=== PATIENT | female | born 1965 | race Caucasian/White ===

== ENCOUNTER 2016-12-20 16:24 | Inpatient (IN) | payer OTHER ==
[2016-12-20] MEDS ORDERED: Midazolam 2 MG/2 ML VIAL ONE (18:04)
[2016-12-20] MEDS ORDERED: Iohexol 350mgl/ml 50 ML ONE (18:04)
[2016-12-20] MEDS ORDERED: Iodixanol 320 MG/ML 200 ML BOTTLE IV ONE (18:04)
[2016-12-20] MEDS ORDERED: Lidocaine 2% Inj (20ml) ONE (18:04)
[2016-12-20] MEDS ORDERED: DiphenhydrAMINE 50 mg/ml Inj ONE (18:42)
[2016-12-20] MEDS ORDERED: Morphine 2 mg/ml ISec IVP PRN (19:33)
[2016-12-20] MEDS ORDERED: Sodium Chloride 0.9% 1,000 ML IV SCH (19:45)
[2016-12-20] MEDS ORDERED: Albuterol 0.083% Inhal Sol (2.5 mg/3 mL) UD IH SCH (20:00)
[2016-12-20] MEDS ORDERED: Morphine 4 mg/ml ISec IVP PRN (21:12)
[2016-12-20] MEDS ORDERED: Pneumococcal 23-Valent Vaccine IM ONE (21:26)
[2016-12-20 21:27] VITALS: BMI 21.7
[2016-12-21] MEDS ORDERED: Sodium Chloride 0.9% 1,000 ML IV SCH (00:31)
[2016-12-21] MEDS ORDERED: Albuterol 0.083% Inhal Sol (2.5 mg/3 mL) UD IH PRN (00:31)
--- NOTE | 2016-12-21 00:36 | CP.PCM.CON ---
<NeliWenceslao cabrera - Last Filed: 12/21/16 00:36> History of Present Illness - History of Present Illness History of Present Illness: cc: nausea/vomiting HPI: Patient is a 51yo female with past medical history of anxiety, asthma, arthritis, gastritis, hypertension and hyperlipidemia that presented to [facility] c/o epigastric abdominal pain associated with nausea and vomiting. She had been seen a day prior for the same symptoms and at that time was offered admission for further workup of her intractable nausea/vomiting. She declined admission and stated she would return if her symptoms worsen the following day. On this presentation, it was noted that her EKG showed T-wave inversions in the anterolateral leads as well as a troponin of 0.59. Cardiology was consulted and Dr. Olson recommended immediate cardiac catherization at [facility]. Patient was subsequently transferred to [facility] where cardiac cath was performed and 2 drug-eluting stents were placed in the mLAD. At the time of evaluation, patient denied chest pain, palpitations, SOB, abdominal pain, nausea, vomiting, fever, chills, cough. 12point ROS as per HPI above, otherwise negative PMHx: as stated above PSHx: cholecystectomy, hernia repair, tonsillectomy, hysterectomy Allergies: NKDA Medications: Patient reported only taking percocet for abdominal pain, however medications according to chart reviewed Social Hx: history of tobacco use, denies illicit drugs and alcohol use Family Hx: history of CAD Past Patient History - Infectious Disease Hx of Infectious Diseases: None - Past Social History Smoking Status: Never Smoked - CARDIAC Hx Hypercholesterolemia: Yes Hx Hypertension: Yes Other/Comment: dvt with ivc filter 1993 - PULMONARY Hx Asthma: Yes - HEMATOLOGICAL/ONCOLOGICAL Hx Blood Disorders: Yes Hx Cancer: (pt uncertain) Other/Comment: pt unsure as to why she had a hystrectomy in 1993 When questioned about ovarian or utrine ca pt stated "I don't remember". - INTEGUMENTARY Other/Comment: right groin drressing dry and intact - MUSCULOSKELETAL/RHEUMATOLOGICAL Hx Falls: No - GASTROINTESTINAL Hx Gastrointestinal Disorders: Yes (gastritis) Hx Pancreatitis: Yes Hx Ulcer: Yes - GENITOURINARY/GYNECOLOGICAL Hx Ovarian Cancer: Yes - PSYCHIATRIC Hx Anxiety: Yes Hx Depression: Yes - SURGICAL HISTORY Hx Cardiac Catheterization: Yes (12/20/16) Hx Cholecystectomy: Yes Hx Hysterectomy: Yes (1993) Other/Comment: hernia sx, tonsillectomy, left knee sx hardware removed, pt unsure as to why she had a hysterectomy, stated "I don't remember". cardiac catherization today 12/20/16 - ANESTHESIA Hx Anesthesia: Yes Hx Anesthesia Reactions: No Meds Allergies/Adverse Reactions: Allergies Allergy/AdvReac Type Severity Reaction Status Date / Time No Known Allergies Allergy Verified 12/16/16 10:54 - Medications Medications: Current Medications Acetaminophen (Tylenol 325mg Tab) 650 mg PO Q6 PRN PRN Reason: Pain, Mild (1-3) Albuterol Sulfate (Albuterol 0.083% Inhal Vicenta (2.5 Mg/3 Ml) Ud) 2.5 mg IH [id number] PRN PRN Reason: Shortness of Breath Alprazolam (Xanax) 1 mg PO BID PRN; Protocol PRN Reason: Anxiety Aspirin (Aspirin Chewable) 81 mg PO DAILY [facility] Atorvastatin Calcium (Lipitor) 40 mg PO HS [facility] Last Admin: 12/20/16 21:29 Dose: 40 mg Famotidine (Pepcid) 20 mg PO DAILY [facility] Sodium Chloride (Sodium Chloride 0.9%) 1,000 mls @ 100 mls/hr IV .Q10H [facility] Morphine Sulfate (Morphine) 2 mg IVP Q4H PRN PRN Reason: Pain, moderate (4-7) Last Admin: 12/20/16 21:27 Dose: 2 mg Ondansetron HCl (Zofran Odt) 4 mg PO Q6 PRN PRN Reason: Nausea/Vomiting Pantoprazole Sodium (Protonix Ec Tab) 20 mg PO ACB [facility] Prasugrel (Effient) 10 mg PO DAILY [facility] Physical Exam - Constitutional Appears: No Acute Distress - Head Exam Head Exam: ATRAUMATIC, NORMAL INSPECTION, NORMOCEPHALIC - Eye Exam Eye Exam: EOMI, PERRL - ENT Exam ENT Exam: Mucous Membranes Moist - Neck Exam Neck exam: Positive for: Normal Inspection - Respiratory Exam Respiratory Exam: Clear to Auscultation Bilateral. absent: Rales, Rhonchi, Wheezes - Cardiovascular Exam Cardiovascular Exam: RRR, +S1, +S2. absent: Diastolic murmur, Gallop, Rubs, Systolic Murmur - GI/Abdominal Exam GI & Abdominal Exam: Soft. absent: Distended, Firm, Guarding, Rebound, Tenderness - Extremities Exam Extremities exam: Positive for: normal inspection. Negative for: pedal edema - Neurological Exam Neurological exam: Alert, Oriented x3 - Psychiatric Exam Psychiatric exam: Normal Affect, Normal Mood - Skin Skin Exam: Dry, Intact, Normal Color, Warm Results - Vital Signs Recent Vital Signs: Last Vital Signs Temp 98.4 F 12/20/16 21:12 Pulse 66 12/20/16 23:39 Resp 16 12/20/16 22:40 BP 130/67 12/20/16 22:32 Pulse Ox 100 12/20/16 22:40 Assessment & Plan - Assessment and Plan (Free Text) Plan: 51yo female with history of anxiety, asthma, arthritis, gastritis, HTN and HLD admitted for NSTEMI s/p cardiac cath with 2 IMTIAZ stents placed in the mLAD 1. Neuro -Alert, oriented x3 -Maintain normothermia 2. Cardio -Patient s/p cardiac cath with 2 drug-eluting stents placed in the mLAD -On arrival to the ED, patient was placed on heparin drip, ASA 325 and Plavix -EKG reviewed; NSR @ 77bpm, incomplete RBBB, T wave inversions in the anterolateral leads, prolonged QT -Troponin on arrival 0.59, repeat in the AM ordered -Continue with ASA 81mg PO daily, Effient 10mg PO daily, Lipitor 40mg PO HS -Beta yvette held due to episodes of bradycardia -IVF hydration with NS @100cc/hr -Pain control with morphine 2mg q4h PRN -Zofran 4mg q6h PRN for nausea/vomiting 3. Pulm -Continue with Albuterol treatments PRN for asthma -CXR reviewed; revealed no active disease -O2 sat >92% on room air 4. GI -Heart healthy diet -GI prophylaxis with pepcid 20mg po daily 5. Renal -Monitor and replete electrolytes as indicated -IVF hydration -Monitor for post-cath contrast induced nephropathy 6. Endo -Heart healthy diet/maintain euglycemia 7. ID -afebrile, no leukocytosis -CXR revealed no active disease -UA from 12/19 negative Patient seen and case discussed with attending, Dr. Quiroz - Date & Time Date: 12/21/16 Time: 00:45 <Juan Quiroz Q - Last Filed: 12/21/16 02:09> Meds - Medications Medications: Current Medications Acetaminophen (Tylenol 325mg Tab) 650 mg PO Q6 PRN PRN Reason: Pain, Mild (1-3) Albuterol Sulfate (Albuterol 0.083% Inhal Vicenta (2.5 Mg/3 Ml) Ud) 2.5 mg IH [id number] PRN PRN Reason: Shortness of Breath Alprazolam (Xanax) 1 mg PO BID PRN; Protocol PRN Reason: Anxiety Aspirin (Aspirin Chewable) 81 mg PO DAILY [facility] Atorvastatin Calcium (Lipitor) 40 mg PO HS [facility] Last Admin: 12/20/16 21:29 Dose: 40 mg Famotidine (Pepcid) 20 mg PO DAILY [facility] Sodium Chloride (Sodium Chloride 0.9%) 1,000 mls @ 100 mls/hr IV .Q10H [facility] Morphine Sulfate (Morphine) 2 mg IVP Q4H PRN PRN Reason: Pain, moderate (4-7) Last Admin: 12/20/16 21:27 Dose: 2 mg Ondansetron HCl (Zofran Odt) 4 mg PO Q6 PRN PRN Reason: Nausea/Vomiting Pantoprazole Sodium (Protonix Ec Tab) 20 mg PO ACB [facility] Prasugrel (Effient) 10 mg PO DAILY [facility] Results - Vital Signs Recent Vital Signs: Last Vital Signs Temp 98.4 F 12/21/16 00:18 Pulse 76 12/21/16 01:50 Resp 16 12/21/16 01:50 BP 101/57 L 12/21/16 01:18 Pulse Ox 97 12/21/16 01:50 Attending/Attestation - Attestation I have personally seen and examined this patient.: Yes I have fully participated in the care of the patient.: Yes I have reviewed all pertinent clinical information: Yes
[2016-12-21 01:22] VITALS: TEMP 98.4
[2016-12-21 01:53] VITALS: O2SAT 97
--- NOTE | 2016-12-21 03:21 | CARDCATH ---
PROCEDURE DATE: 12/20/2016 INDICATIONS: Ms. Umm Saeed is a 51-year-old female with history of peripheral vascular occlusive disease status post stenting a few years ago who has been followed by Dr. Jesu Sutton for her cardiovascular care. She presented to [facility] with complaints of chest pain and non-ST elevation MA. EKG was concerning for Wellens' sign for which she was emergently transferred to [facility] for urgent cardiac catheterization. PROCEDURE PERFORMED: Left heart catheterization with selective left and right coronary angiogram, left ventriculogram, 6-Stateless right femoral arterial access, PTCA stenting of mid left anterior descending artery with deployment of 2.5 x 18 mm Resolute drug eluting stent and a 2.75 x 12 cm Resolute drug eluting stent. Lesion reduction from 99% down to 0% and HILDA 3 flow. AngioSeal closure device for hemostasis. TECHNIQUES OF PROCEDURE: After obtaining informed consent, the patient was brought urgently to the cardiac clinical lab assistant in post-absorptive non-sedated state. The patient was prepped and draped in the usual sterile fashion. 2% lidocaine was used for infiltration of anesthesia. Using modified Seldinger technique, 6-Stateless sheath was introduced into the right femoral artery. Subsequently over a J-wire, a JL4 and JR4 diagnostic catheters were used to engage the left and right coronary systems. Angiograms were obtained in three orthogonal views. Subsequently, the JR4 catheter was crossed across the aortic valve and LV-gram was obtained in the GUTIERREZ view. Coronary artery, left main, large sized vessel, bifurcates into left anterior descending and left circumflex coronary artery. The left circumflex coronary artery is a large sized vessel, gives off a large obtuse marginal 1 branch with mild luminal irregularities. Left anterior descending is a large size vessel with mid 99% ruptured sac, gives off two medium size diagonal branches, proximal to the mid LAD there is 60% diffuse stenosis. TECHNIQUES OF INTERVENTION: After reviewing the above angiographic findings, it was deemed imperative to fix the mid LAD ruptured sac over XB 3.5 guiding catheter, Prowater wire was negotiated through the ruptured sac into the distal LAD. The lesion was predilated and then subsequently stented with 2.5 x 18 mm Resolute drug eluting stent. Post dilatation, there was a plaque shift at the proximal edge of the stent for which a 2.75 x 12 mm Resolute drug eluting stent was deployed. Final angiograms done showed lesion reduction down to 0% and good HILDA 3 flow. IMPRESSION: Successful percutaneous transluminal coronary angioplasty stenting of mid left anterior descending with deployment of two drug eluting stents. Mild anterior apical hypokinesis with preserved left ventricular function. Ejection fraction estimated to be 50% to 55%. RECOMMENDATIONS: The patient is to be kept on dual-antiplatelet therapy. The patient loaded with Effient 60 mg in the clinical lab assistant. The patient is to continue with aspirin and Effient. Keep the patient on guideline-directed medical therapy for his coronary artery disease. The patient is to be discharged home in the morning and follow up with Dr. Sutton in his office in a week's time. Above plan of care and anatomical findings were reviewed and discussed with Dr. Jesu Sutton. Jerry Olson MD
[2016-12-21 06:17] LABS: BASO # 0.03 K/mm3 (0.0-2.0); BASO % 0.3 % (0.0-3.0); EOS % 0.4 % (1.5-5.0); GRAN # 5.74 (1.4-6.5); GRAN % 62.1 % (50.0-68.0); HEMATOCRIT 35.4 % (36.0-48.0); LYMPH # 2.6 (1.2-3.4); LYMPH % 28.4 % (22.0-35.0); MEAN CELL VOLUME 95.4 fl (80.0-105.0); MEAN CORPUSCULAR HEMOGLOBIN 32.3 pg (25.0-35.0); MEAN CORPUSCULAR HGB CONC 33.9 g/dl (31.0-37.0); MEAN PLATELET VOLUME 10.5 fl (7.0-11.0); MONO # 0.8 (0.1-0.6); MONO % 8.8 % (1.0-6.0); RED CELL DISTRIBUTION WIDTH 13.8 % (11.5-14.5); WHITE BLOOD COUNT 9.3 10^3/ul (4.5-11.0)
[2016-12-21 06:37] LABS: ALB/GLOB RATIO 1.5 (1.1-1.8); ALKALINE PHOSPHATASE 62 U/L (38-126); ALT/SGPT 21 U/L (7-56); AST/SGOT 46 U/L (14-36); BILIRUBIN,TOTAL 0.6 mg/dL (0.2-1.3); BLOOD UREA NITROGEN 11 mg/dL (7-21); CALCIUM 8.7 mg/dL (8.4-10.5); CARBON DIOXIDE 25 mmol/L (21-33); CHLORIDE 109 mmol/L (98-107); GFR AFRICAN-AMERICAN > 60; GLUCOSE,RANDOM 94 mg/dL (70-110); SODIUM 141 mmol/L (132-148)
[2016-12-21 07:16] LABS: TROPONIN I 0.98 ng/mL
[2016-12-21] MEDS ORDERED: Pantoprazole 20 mg EC Tab PO SCH (07:30)
[2016-12-21] MEDS ORDERED: Potassium Chloride 20 mEq ER Tab PO SCH (09:15)
[2016-12-21] MEDS ORDERED: Potassium Chloride 20 mEq ER Tab PO ONE (09:15)
[2016-12-21] MEDS ORDERED: Metoprolol Succinate 25 mg XL Tab PO SCH (10:00)
--- NOTE | 2016-12-21 10:03 | CP.CCUPN ---
CCU Subjective - Physician Review Subjective (Free Text): 12/21/16 09:46 Pt seen and examined at bedside this AM. Patient is s/p cardiac cath with 2 drug eluting stents to the mLCA. No acute events reported overnight. Patient CCU Objective - Vital Signs / Intake & Output Vital Signs (Last 4 hours): Vital Signs Pulse 12/21/16 06:00 65 Intake and Output (Last 8hrs): Intake & Output 12/20/16 12/21/16 12/21/16 22:59 06:59 14:59 Intake Total 150 620 Output Total 350 Balance 150 270 Weight 118 lb 2.684 oz Intake: IV 150 500 Left Hand 150 500 Oral 120 Output: Urine 350 Urine, Voided 350 - Medications Active Medications: Active Medications Generic Name Dose Route Start Last Admin Trade Name Freq PRN Reason Stop Dose Admin Acetaminophen 650 mg 12/20/16 19:33 Tylenol 325mg Tab PO Q6 PRN Pain, Mild (1-3) Albuterol Sulfate 2.5 mg 12/21/16 00:31 Albuterol 0.083% Inhal Vicenta (2.5 Mg/3 Ml) Ud IH [id number] PRN Shortness of Breath Alprazolam 1 mg 12/20/16 19:21 Xanax PO BID PRN Anxiety Protocol Aspirin 81 mg 12/21/16 10:00 12/21/16 09:32 Aspirin Chewable PO 81 mg DAILY [facility] Administration Atorvastatin Calcium 40 mg 12/20/16 22:00 12/20/16 21:29 Lipitor PO 40 mg HS [facility] Administration Famotidine 20 mg 12/21/16 10:00 12/21/16 09:32 Pepcid PO 20 mg DAILY [facility] Administration Sodium Chloride 1,000 mls @ 100 mls/hr 12/21/16 00:31 12/21/16 03:40 Sodium Chloride 0.9% IV 100 mls/hr .Q10H [facility] Administration Morphine Sulfate 2 mg 12/20/16 21:12 12/20/16 21:27 Morphine IVP 2 mg Q4H PRN Administration Pain, moderate (4-7) Ondansetron HCl 4 mg 12/20/16 19:21 Zofran Odt PO Q6 PRN Nausea/Vomiting Pantoprazole Sodium 20 mg 12/21/16 07:30 12/21/16 09:31 Protonix Ec Tab PO 20 mg ACB [facility] Administration Prasugrel 10 mg 12/21/16 10:00 12/21/16 09:33 Effient PO 10 mg DAILY [facility] Administration - Patient Studies Lab Studies: Lab Studies 12/21/16 12/21/16 Range/Units 06:00 06:00 WBC 9.3 (4.5-11.0) 10^3/ul RBC 3.71 (3.5-6.1) 10^6/uL Hgb 12.0 (12.0-16.0) g/dL Hct 35.4 L (36.0-48.0) % MCV 95.4 (80.0-105.0) fl MCH 32.3 (25.0-35.0) pg MCHC 33.9 (31.0-37.0) g/dl RDW 13.8 (11.5-14.5) % Plt Count 179 (120.0-450.0) 10^3/uL MPV 10.5 (7.0-11.0) fl Gran % 62.1 (50.0-68.0) % Lymph % (Auto) 28.4 (22.0-35.0) % Dane % (Auto) 8.8 H (1.0-6.0) % Eos % (Auto) 0.4 L (1.5-5.0) % Baso % (Auto) 0.3 (0.0-3.0) % Gran # 5.74 (1.4-6.5) Lymph # 2.6 (1.2-3.4) Dane # 0.8 H (0.1-0.6) Eos # 0.0 (0.0-0.7) Baso # 0.03 (0.0-2.0) K/mm3 Sodium 141 (132-148) mmol/L Potassium 3.0 L (3.6-5.0) mmol/L Chloride 109 H (98-107) mmol/L Carbon Dioxide 25 (21-33) mmol/L Anion Gap 10 (10-20) BUN 11 (7-21) mg/dL Creatinine 0.7 (0.7-1.2) mg/dL Est GFR ( Amer) > 60 Est GFR (Non-Af Amer) > 60 Random Glucose 94 (70-110) mg/dL Calcium 8.7 (8.4-10.5) mg/dL Total Bilirubin 0.6 (0.2-1.3) mg/dL AST 46 H (14-36) U/L ALT 21 (7-56) U/L Alkaline Phosphatase 62 (38-126) U/L Troponin I 0.98 H* ng/mL Total Protein 6.0 (5.8-8.3) g/dL Albumin 3.6 (3.0-4.8) g/dL Globulin 2.4 gm/dL Albumin/Globulin Ratio 1.5 (1.1-1.8) Laboratory Results - last 24 hr 12/21/16 12/21/16 06:00 06:00 WBC 9.3 RBC 3.71 Hgb 12.0 Hct 35.4 L MCV 95.4 MCH 32.3 MCHC 33.9 RDW 13.8 Plt Count 179 MPV 10.5 Gran % 62.1 Lymph % (Auto) 28.4 Dane % (Auto) 8.8 H Eos % (Auto) 0.4 L Baso % (Auto) 0.3 Gran # 5.74 Lymph # 2.6 Dane # 0.8 H Eos # 0.0 Baso # 0.03 Sodium 141 Potassium 3.0 L Chloride 109 H Carbon Dioxide 25 Anion Gap 10 BUN 11 Creatinine 0.7 Est GFR ( Amer) > 60 Est GFR (Non-Af Amer) > 60 Random Glucose 94 Calcium 8.7 Total Bilirubin 0.6 AST 46 H ALT 21 Alkaline Phosphatase 62 Troponin I 0.98 H* Total Protein 6.0 Albumin 3.6 Globulin 2.4 Albumin/Globulin Ratio 1.5 Critical Care Progress Note - Nutrition Nutrition: Nutrition Category Date Time Status Heart Healthy Diet [DIET] Diets 12/20/16 Dinner Ordered
[2016-12-21 10:17] VITALS: BP 114/83; PULSE 83; RESP 18
== END 2016-12-21 13:46 | disposition home or self-care (01) | DRG 853 ==
LOC: CATH 16:24 → CCU 19:43 → UNDOFXSDCRRACCOM 20:37 → UNDOFXSDCSVC 20:37 → UNDOFXSDCACCOM 20:37
PROVIDERS: ADMIT Internal Medicine Interventional Cardiology; ATTEND Internal Medicine Interventional Cardiology
PROC: 027034Z Dilation of Coronary Artery, One Artery with Drug-eluting Intraluminal Device, Percutaneous Approach (ICD-10-PCS; principal; 2016-12-20)
PROC: 4A023N7 Measurement of Cardiac Sampling and Pressure, Left Heart, Percutaneous Approach (ICD-10-PCS; 2016-12-20)
PROC: B2111ZZ Fluoroscopy of Multiple Coronary Arteries using Low Osmolar Contrast (ICD-10-PCS; 2016-12-20)
PROC: B2151ZZ Fluoroscopy of Left Heart using Low Osmolar Contrast (ICD-10-PCS; 2016-12-20)
DX: I21.4 Non-ST elevation (NSTEMI) myocardial infarction (principal); I10 Essential (primary) hypertension; J43.9 Emphysema, unspecified; I73.9 Peripheral vascular disease, unspecified; I25.10 Atherosclerotic heart disease of native coronary artery without angina pectoris; J45.909 Unspecified asthma, uncomplicated; J40 Bronchitis, not specified as acute or chronic; F17.200 Nicotine dependence, unspecified, uncomplicated; R06.00 Dyspnea, unspecified; E78.00 Pure hypercholesterolemia, unspecified; E78.5 Hyperlipidemia, unspecified; Z85.43 Personal history of malignant neoplasm of ovary; Z90.49 Acquired absence of other specified parts of digestive tract; Z90.710 Acquired absence of both cervix and uterus; M19.90 Unspecified osteoarthritis, unspecified site; F41.9 Anxiety disorder, unspecified; K29.70 Gastritis, unspecified, without bleeding; R10.13 Epigastric pain; R11.2 Nausea with vomiting, unspecified; F32.89 Other specified depressive episodes; R00.1 Bradycardia, unspecified